=== PATIENT | male | born 1990 | race Caucasian/White ===

== ENCOUNTER → 2017-02-14 | Outpatient (CLI) | payer MEDICAID ==
[~2017-02-14] MED LIST: LISINOPRIL10 MG PO; MEN'S MULTIVITA1 TA1 PO; OXCARBAZEPINE600 MG PO
[2017-02-14 18:31] LABS: LYMPH # 2.4 K/mm3 (0.7-4.5); LYMPH % 32.1 % (10-50)
[2017-02-14 20:45] LABS: BUN 11 mg/dL (7-18)
[2017-02-14 20:49] LABS: GFR (ESTIMATED) 117 ML/MIN (>60)
== END ==
LOC: LAB 18:18
PROVIDERS: Nurse Practitioner Family
DX: G40.909 Epilepsy, unspecified, not intractable, without status epilepticus (principal); F41.9 Anxiety disorder, unspecified